=== PATIENT | female | born 1940 | race Caucasian/White ===

== ENCOUNTER 2020-04-14 17:06 | Inpatient (IN) | payer OTHER ==
[~2020-04-14] VITALS: Ht 149.9 cm; Wt 95.6 kg
[2020-04-14 17:08] VITALS: BP 97/42
[2020-04-14] MEDS ORDERED: FLONASE 0.05%50 MCG NARES ×2 (17:35→17:52)
[2020-04-14] MEDS ORDERED: ELIQUIS5 MG PO ×2 (17:35→17:53)
[2020-04-14] MEDS ORDERED: ARMOUR THYROID60 M1 PO ×2 (17:36→17:54)
[2020-04-14] MEDS ORDERED: PROTONIX40 M2 PO ×2 (17:36→17:53)
[2020-04-14 17:37] LABS: HEMATOCRIT 22.2 % (37.0-47.0); MCHC 30.6 g/dL (28.0-37.0); MCV 107.8 fL (80.0-100.0); MPV 8.2 fl. (7.2-11.1); NUCLEATED RBCS 1 /100WBC; PLATELET COUNT* 66 thou/uL (150-400); RBC 2.06 mil/uL (4.20-5.00); RDW-CV 21.1 % (10.5-14.5)
[2020-04-14] MEDS ORDERED: TYLENOL325 M1 PO (17:37)
[2020-04-14] MEDS ORDERED: ALPRAZOLAM XR3 MG PO ×2 (17:37→17:54)
[2020-04-14 17:41] LABS: HEMOGLOBIN 6.8 gm/dL (12.0-15.0)
[2020-04-14 17:42] LABS: WBC 0.9 thou/uL (4.0-11.0)
[2020-04-14 17:47] LABS: CALCIUM 8.5 mg/dL (8.5-10.1); CREATININE 1.7 mg/dL (0.6-1.3); POTASSIUM 5.4 mmol/L (3.5-5.1)
[2020-04-14 17:49] LABS: INR 1.1; PROTIME 11.4 Seconds (9.20-11.50)
[2020-04-14] MEDS ORDERED: IRON325 M1 PO (17:55)
[2020-04-14] MEDS ORDERED: MAGNESIUM250 M1 PO (17:55)
[2020-04-14] MEDS ORDERED: TYLENOL EXTRA500 MG PO (17:55)
[2020-04-14] MEDS ORDERED: VITAMIN D-40010 MCG PO (17:57)
[2020-04-14] MEDS ORDERED: VITAMIN D PO (17:57)
[2020-04-14 17:58] LABS: ALBUMIN 3.8 g/dL (3.4-5.0); TOTAL BILIRUBIN 0.2 mg/dL (<0.1-1.0); TOTAL PROTEIN 6.8 g/dL (6.4-8.2)
[2020-04-14] MEDS ORDERED: KLOR-CON M2020 MEQ PO (17:58)
[2020-04-14] MEDS ORDERED: PROCTOSOL-HC28.35 GM TOP (17:58)
[2020-04-14] MEDS ORDERED: TOPROL XL25 MG PO (17:59)
[2020-04-14] MEDS ORDERED: FUROSEMIDE 40 M40 MG PO (17:59)
[2020-04-14] MEDS ORDERED: DILTIAZEM ER180 M2 PO (17:59)
[2020-04-14] MEDS ORDERED: ALIGN4 MG PO (18:00)
[2020-04-14] MEDS ORDERED: DIFLUCAN10 MG/ML PO (18:01)
[2020-04-14 18:33] LABS: URINE BILIRUBIN NEGATIVE (Negative); URINE BLOOD NEGATIVE (Negative); URINE CLARITY CLEAR; URINE COLOR YELLOW; URINE GLUCOSE-RANDOM NEGATIVE (Negative); URINE KETONES TRACE (Negative); URINE LEUKOCYTES-REFLEX NEGATIVE (Negative); URINE PROTEIN TRACE (Negative); URINE UROBILINOGEN 0.2 E.U./dl (0.2-1.0)
[2020-04-14 18:34] LABS: URINE NITRITE-REFLEX POSITIVE (Negative)
[2020-04-14 18:38] LABS: ABSOLUTE LYMPHOCYTES 0.3 thou/uL (0.8-5.3); ABSOLUTE MONOCYTES 0.2 thou/uL (0.0-1.2); ABSOLUTE NEUTROPHILS 0.3 thou/uL (1.6-8.1); PLATELET ESTIMATE DECREASED
[2020-04-14 18:39] LABS: ANISOCYTOSIS 2+; MACROCYTES 1+
[2020-04-14 18:44] LABS: BACTERIA-REFLEX >30 Many /HPF (None Seen); CRYSTALS None Seen /LPF (None Seen); HYALINE CASTS 0-3 Few /LPF (None Seen); MUCUS None Seen strn/LPF (None Seen); SQUAMOUS 4-10 Moderate /LPF (0-3); URINE RBC 0-2 Rare /HPF (0-2); URINE WBC-REFLEX 0-5 Rare /HPF (0-5)
[2020-04-14 20:11] VITALS: BP 127/40
[2020-04-15] VITALS (7 sets, daily range): BP systolic 102–134; BP diastolic 36–50
[2020-04-15 00:37] LABS: HEMATOCRIT 22.1 % (37.0-47.0); MCH 32.8 pg (26.0-34.0); MCHC 31.6 g/dL (28.0-37.0); MCV 103.8 fL (80.0-100.0); MPV 8.3 fl. (7.2-11.1); RBC 2.13 mil/uL (4.20-5.00)
[2020-04-15 00:39] LABS: WBC 0.9 thou/uL (4.0-11.0)
[2020-04-15 00:47] LABS: CALCIUM 8.3 mg/dL (8.5-10.1); CREATININE 1.6 mg/dL (0.6-1.3); POTASSIUM 5.6 mmol/L (3.5-5.1)
[2020-04-15 05:49] LABS: HEMATOCRIT 21.7 % (37.0-47.0); MCH 32.2 pg (26.0-34.0); MPV 8.5 fl. (7.2-11.1); RBC 2.08 mil/uL (4.20-5.00); RDW-CV 21.6 % (10.5-14.5)
[2020-04-15 05:53] LABS: CALCIUM 8.4 mg/dL (8.5-10.1); CREATININE 1.8 mg/dL (0.6-1.3); POTASSIUM 5.4 mmol/L (3.5-5.1)
[2020-04-15 06:12] LABS: HEMOGLOBIN 6.7 gm/dL (12.0-15.0); WBC 1.2 thou/uL (4.0-11.0)
[2020-04-15 16:57] LABS: ABSOLUTE EOSINOPHILS 0.1 thou/uL (0.0-0.7); ABSOLUTE LYMPHOCYTES 0.5 thou/uL (0.8-5.3); ABSOLUTE MONOCYTES 0.5 thou/uL (0.0-1.2); ABSOLUTE NEUTROPHILS 0.3 thou/uL (1.6-8.1); BASOPHILS 2.1 %; EOSINOPHILS 5.3 %; HEMOGLOBIN 7.9 gm/dL (12.0-15.0); LYMPHOCYTES 36.6 %; MCH 32.7 pg (26.0-34.0); MCHC 31.7 g/dL (28.0-37.0); MCV 103.2 fL (80.0-100.0); NUCLEATED RBCS 1 /100WBC; PLATELET COUNT* 62 thou/uL (150-400); RBC 2.43 mil/uL (4.20-5.00); RDW-CV 20.5 % (10.5-14.5)
[2020-04-15 17:00] LABS: WBC 1.4 thou/uL (4.0-11.0)
[2020-04-16] VITALS: BP 102/38
[2020-04-16 04:00] VITALS: BP 104/38
[2020-04-16 04:23] LABS: ABSOLUTE EOSINOPHILS 0.1 thou/uL (0.0-0.7); ABSOLUTE LYMPHOCYTES 0.7 thou/uL (0.8-5.3); ABSOLUTE MONOCYTES 0.5 thou/uL (0.0-1.2); ABSOLUTE NEUTROPHILS 0.2 thou/uL (1.6-8.1); BASOPHILS 0.9 %; EOSINOPHILS 6.4 %; HEMATOCRIT 23.6 % (37.0-47.0); HEMOGLOBIN 7.6 gm/dL (12.0-15.0); LYMPHOCYTES 44.2 %; MCH 32.8 pg (26.0-34.0); MCV 102.4 fL (80.0-100.0); MONOCYTES 32.6 %; MPV 8.3 fl. (7.2-11.1); NUCLEATED RBCS 0 /100WBC; PLATELET COUNT* 66 thou/uL (150-400); POLYS 15.9 %; RBC 2.31 mil/uL (4.20-5.00); RDW-CV 20.3 % (10.5-14.5)
[2020-04-16 04:31] LABS: ALBUMIN 3.2 g/dL (3.4-5.0); CALCIUM 8.2 mg/dL (8.5-10.1); CREATININE 1.8 mg/dL (0.6-1.3); POTASSIUM 4.7 mmol/L (3.5-5.1); TOTAL BILIRUBIN 0.2 mg/dL (<0.1-1.0); TOTAL PROTEIN 5.9 g/dL (6.4-8.2); WBC 1.5 thou/uL (4.0-11.0)
[2020-04-16 08:00] VITALS: BP 111/36
[2020-04-16 11:45] VITALS: BP 119/34
--- NOTE | 2020-04-16 13:45 | EKG ---
[place] [address] ELECTROCARDIOGRAM REPORT Name: RYAN ALVARADO Room: [address] ADM IN .R.#: [id number] Admission: 04/14/20 Attend Phys: Bee Silva MD Discharge: Date of : 42 Date of Service: 04/14/20 1716 Report #: [id number] THIS REPORT FOR: //name// [facility] ED Test Date: 2020-04-14 Test Time: 17:16:12 Pat Name: RYAN ALVARADO Department: Room: [facility] Gender: F Customer Success Manager: MANGO : 1940 Requested By: Ishaan Urbano Order Number: [id number] MD: Wero Rubio Measurements Intervals [place] Rate: 75 P: 0 WI: 157 QRS: 29 QRSD: 123 T: -74 QT: 407 QTc: 455 Interpretive Statements Sinus rhythm Nonspecific intraventricular conduction delay Repol abnrm suggests ischemia, anterolateral No previous ECG available for comparison Electronically Signed On 04-16-2020 13:45:37 [employer] FINISH[employer] by Wero Rubio [email or web address] <ELECTRONICALLY SIGNED> By: Wero Rubio MD, FAC 04/16/20 1345 1716 1716 Wero Rubio MD, [facility] /EPI
[2020-04-16 15:30] VITALS: BP 104/41
[2020-04-16 20:34] VITALS: BP 128/35
[2020-04-17] VITALS (7 sets, daily range): BP systolic 118–151; BP diastolic 36–55
[2020-04-17 04:56] LABS: HEMATOCRIT 23.4 % (37.0-47.0); HEMOGLOBIN 7.5 gm/dL (12.0-15.0); MCH 32.5 pg (26.0-34.0); MCHC 32.2 g/dL (28.0-37.0); MCV 100.9 fL (80.0-100.0); NUCLEATED RBCS 0 /100WBC; PLATELET COUNT* 63 thou/uL (150-400); RBC 2.32 mil/uL (4.20-5.00); RDW-CV 20.3 % (10.5-14.5)
[2020-04-17 05:09] LABS: ALBUMIN 3.3 g/dL (3.4-5.0); CALCIUM 8.3 mg/dL (8.5-10.1); CREATININE 1.6 mg/dL (0.6-1.3); POTASSIUM 4.8 mmol/L (3.5-5.1); TOTAL BILIRUBIN 0.3 mg/dL (<0.1-1.0)
[2020-04-17 05:23] LABS: WBC 1.5 thou/uL (4.0-11.0)
[2020-04-17 06:19] LABS: ABSOLUTE EOSINOPHILS 0.1 thou/uL (0.0-0.7); ABSOLUTE LYMPHOCYTES 0.6 thou/uL (0.8-5.3); ABSOLUTE MONOCYTES 0.3 thou/uL (0.0-1.2); ABSOLUTE NEUTROPHILS 0.4 thou/uL (1.6-8.1); ANISOCYTOSIS 1+; MACROCYTES 1+; PLATELET ESTIMATE DECREASED; POIKILOCYTOSIS 1+; POLYCHROMASIA Occasional
[2020-04-17 12:55] LABS: CALCIUM 8.3 mg/dL (8.5-10.1); CREATININE 1.6 mg/dL (0.6-1.3); POTASSIUM 4.8 mmol/L (3.5-5.1)
[2020-04-18 04:13] VITALS: BP 125/40
[2020-04-18 04:58] LABS: HEMATOCRIT 22.5 % (37.0-47.0); HEMOGLOBIN 7.3 gm/dL (12.0-15.0); MCH 32.5 pg (26.0-34.0); MCHC 32.3 g/dL (28.0-37.0); MCV 100.6 fL (80.0-100.0); RBC 2.24 mil/uL (4.20-5.00); RDW-CV 19.9 % (10.5-14.5)
[2020-04-18 05:12] LABS: WBC 0.9 thou/uL (4.0-11.0)
[2020-04-18 05:22] LABS: ALBUMIN 2.9 g/dL (3.4-5.0); CALCIUM 8.2 mg/dL (8.5-10.1); CREATININE 1.5 mg/dL (0.6-1.3); MAGNESIUM 1.8 mg/dL (1.8-2.4); POTASSIUM 4.6 mmol/L (3.5-5.1); TOTAL BILIRUBIN 0.3 mg/dL (<0.1-1.0); TOTAL PROTEIN 5.6 g/dL (6.4-8.2)
[2020-04-18 08:00] VITALS: BP 120/37
[2020-04-18 11:57] VITALS: BP 123/36
--- NOTE | 2020-04-18 12:48 | 2DMMODE ---
[place] [address] 2 D/M-MODE ECHOCARDIOGRAM Name: SHERRYJAMMIERYAN J Room: [address] IN .R.#: [id number] Admission: 04/14/20 Attend Phys: Bee Silva MD Discharge: Date of : 42 Date of Service: 04/16/20 1521 Report #: [id number] THIS REPORT FOR: cc: FAM - No family physician/PCP FAM - No family physician/PCP Wero Rubio MD [facility] ~ APPROVED REPORT Study performed: 04/16/2020 10:09:25 EXAM: Comprehensive 2D, Doppler, and color-flow Echocardiogram Patient Location: In-Patient Room #: 204 Status: routine BSA: 1.92 HR: 66 bpm BP: 104/38 mmHg Rhythm: NSR Other Information Study Quality: Good Indications Congestive Heart Failure Dyspnea 2D Dimensions IVSd: 9.08 (7-11mm) LVOT Diam: 18.59 (18-24mm) LVDd: 49.42 mm PWd: 8.28 (7-11mm) Ascending Ao: 30.16 (22-36mm) LVDs: 30.92 (25-40mm) Aortic Root: 29.03 mm Volumes Left Atrial Volume (Systole) LA ESV Index: 66.20 mL/m2 Aortic Valve AoV Peak Gilbert.: 1.85 m/s AO Peak Gr.: 13.62 mmHg LVOT Max P.89 mmHg AO Mean Gr.: 6.13 mmHg LVOT Mean P.41 mmHg LVOT Max V: 1.21 m/s AO V2 VTI: 40.01 cm LVOT Mean V: 0.69 m/s ADY (VTI): 2.20 cm2 LVOT V1 VTI: 32.43 [place] [address] 2 D/M-MODE ECHOCARDIOGRAM Name: RYAN ALVARADO Room: [address] IN .R.#: [id number] Admission: 04/14/20 Attend Phys: Bee Silva MD Discharge: Date of : 42 Date of Service: 04/16/20 1521 Report #: [id number] Mitral Valve E/A Ratio: 1.32 MV Decel. Time: 151.25 ms MV E Max Gilbert.: 1.34 m/s MV PHT: 43.86 ms MVA (PHT): 5.02 cm2 TDI E/Lateral E': 12.18 E/Medial E': 12.18 Medial E' Gilbert.: 0.11 m/s Lateral E' Gilbert.: 0.11 m/s Pulmonary Valve PV Peak Gilbert.: 1.29 m/s PV Peak Gr.: 6.62 mmHg Tricuspid Valve RAP Estimate: 5.00 mmHg TR Peak Gr.: 41.02 mmHg RVSP: 46.00 mmHg PA Pressure: 46.00 mmHg Left Ventricle The left ventricle is normal size. There is normal LV segmental wall motion. There is normal left ventricular wall thickness. Left ventricular systolic function is normal. The left ventricular ejection fraction is within the normal range. LVEF is 55-60%. The left ventricular diastolic function is normal. Right Ventricle Right ventricle is borderline dilated. The right ventricular systolic function is normal. Pacemaker lead is present in the right ventricle. Atria Left atrium is moderately dilated. Right atrium is moderately dilated. Aortic Valve Mild aortic valve sclerosis. No aortic regurgitation is present. No hemodynamically significant valvular aortic stenosis. Mitral Valve The mitral valve is normal in structure. Mild mitral regurgitation. No evidence of mitral valve stenosis. Tricuspid Valve The tricuspid valve is normal in structure[place] [address] 2 D/M-MODE ECHOCARDIOGRAM Name: RYAN ALVARADO Room: [address] IN [facility]#: [id number] Admission: 04/14/20 Attend Phys: Bee Silva MD Discharge: Date of : 42 Date of Service: 04/16/20 1521 Report #: [id number] tricuspid regurgitation. Moderate pulmonary hypertension. Pulmonic Valve The pulmonary valve is normal in structure. There is no pulmonic valvular regurgitation. Great Vessels The aortic root is normal in size. IVC is normal in size and collapses >50% with inspiration. Pericardium There is no pericardial effusion. <Conclusion> The left ventricle is normal size. There is normal left ventricular wall thickness. Left ventricular systolic function is normal. The left ventricular ejection fraction is within the normal range. LVEF is 55-60%. The left ventricular diastolic function is normal. Right ventricle is borderline dilated. Left atrium is moderately dilated. Right atrium is moderately dilated. Mild aortic valve sclerosis. No aortic regurgitation is present. No hemodynamically significant valvular aortic stenosis. The mitral valve is normal in structure. Mild mitral regurgitation. The tricuspid valve is normal in structure. Mild to moderate tricuspid regurgitation. Moderate pulmonary hypertension. IVC is normal in size and collapses >50% with inspiration. There is no pericardial effusion. There is normal LV segmental wall motion. Pacemaker lead is present in the right ventricle. <ELECTRONICALLY SIGNED> By: Wero Rubio MD, FACC 04/16/20 1521 152 152 Wero Rubio MD, FACC /INF
--- NOTE | 2020-04-18 12:50 | CON ---
[address] [address] CONSULTATION Name: SHERRYJAMMIERYAN Room: [address] IN M.R.#: [id number] Admission: 04/14/20 Attend Phys: Bee Silva MD Discharge: Date of : 42 Report #: [id number] THIS REPORT FOR: cc: FAM - No family physician/PCP FAM - No family physician/PCP ~ João Anaya DPM DATE OF SERVICE: 04/16/2020 ADMISSION DIAGNOSES: Malaise, weakness, fatigue. HISTORY OF PRESENT ILLNESS: The patient is a 80-year-old female admitted on 04/14/2020 with weakness, fatigue and left lower extremity edema with cellulitis. She has a grade 0 pressure ulceration to the left inferior heel. She was started on ceftriaxone for possible UTI. She is also on p.o. clindamycin. Her recently passed and she was unable to attend the due to increased stability. She was ambulatory with a walker prior to hospital admission. She has a substantial medical history. She denies fevers, chills, nausea, malaise, diaphoresis or chest pain. LABORATORY DATA: WBC 1.5, RBC 2.31, hemoglobin 7.6, hematocrit 23.6, platelets 66. BUN 36, creatinine 1.8, glucose 82, albumin 3.2. PHYSICAL EXAMINATION: Temperature 97.5, pulse 68, respiration 17, blood pressure 119/34. There is a grade 0 ulceration to the left inferior heel with no open skin wound. The area was mildly inflamed and painful to the touch. There is some shadowing of the underlying subcutaneous tissue, no fluctuance or crepitation. She has a faintly palpable dorsalis pedis and posterior tibial pulses bilaterally. She has advanced edema to both lower extremities. IMPRESSION: Grade 0 ulceration to left inferior heel with low-grade cellulitis. PLAN: I ordered a PRAFO boot for improved offloading. May continue to cover the area with a bordered foam. No further imaging studies are completed. <ELECTRONICALLY SIGNED> By: João Anaya DPM 04/18/20 1250 1247 1301Dlj Anaya DPM /nt
[2020-04-18 16:37] VITALS: BP 114/41
[2020-04-18 20:00] VITALS: BP 126/41
[2020-04-19 00:35] VITALS: BP 113/48
[2020-04-19 04:19] VITALS: BP 104/46
[2020-04-19 04:39] LABS: HEMATOCRIT 22.2 % (37.0-47.0); HEMOGLOBIN 7.2 gm/dL (12.0-15.0); MCH 32.7 pg (26.0-34.0); MCHC 32.2 g/dL (28.0-37.0); MCV 101.5 fL (80.0-100.0); MPV 7.7 fl. (7.2-11.1); RBC 2.19 mil/uL (4.20-5.00); RDW-CV 20.2 % (10.5-14.5)
[2020-04-19 05:10] LABS: ALBUMIN 2.7 g/dL (3.4-5.0); CALCIUM 7.9 mg/dL (8.5-10.1); CREATININE 1.4 mg/dL (0.6-1.3); MAGNESIUM 1.9 mg/dL (1.8-2.4); POTASSIUM 4.6 mmol/L (3.5-5.1); TOTAL BILIRUBIN 0.3 mg/dL (<0.1-1.0); TOTAL PROTEIN 5.3 g/dL (6.4-8.2)
[2020-04-19 05:45] LABS: WBC 1.8 thou/uL (4.0-11.0)
[2020-04-19 08:15] VITALS: BP 114/50
--- NOTE | 2020-04-19 08:59 | CON ---
[address] [address] CONSULTATION Name: RYAN ALVARADO Remy Room: [address] IN ..#: [id number] Admission: 04/14/20 Attend Phys: Bee Silva MD Discharge: Date of : 42 Report #: [id number] THIS REPORT FOR: cc: STEVE - No family physician/PCP FAM - No family physician/PCP ~ Noreen Hoang MD DATE OF SERVICE: 04/16/2020 REQUESTING PHYSICIAN: Bee Silva MD REASON FOR CONSULTATION: Pancytopenia. HISTORY OF PRESENT ILLNESS: The patient is a 80-year-old female with history of coronary artery disease, congestive heart failure, hypothyroidism and anxiety, who was brought to the Emergency Room by EMS complaining of increasing weakness and generalized fatigue. She was the sole caregiver of her , who recently last week. She was not able to go to because of weakness. She was found to have pancytopenia. Hematology consult is requested. The patient is on diuretics. She is doing okay. She does not have complaints of fever or chills. Denies nausea, vomiting or diarrhea. She states that she has noticed abdominal bloating and increasing abdominal girth. Denies melena or hematochezia. PAST MEDICAL HISTORY: Significant for coronary artery disease, congestive heart failure, hypothyroidism, major depressive disorder, GERD. SOCIAL HISTORY: She is recently. Lives with her granddaughter now. She does not smoke. FAMILY HISTORY: Noncontributory. PHYSICAL EXAMINATION: GENERAL: Reveals an elderly female, not in acute distress. VITAL SIGNS: Blood pressure 104/38, heart rate 82, respirations 18, temperature 97.7. HEENT: Reveals decreased hearing. NECK: Supple. LUNGS: Clear. ABDOMEN: Obese. LOWER EXTREMITIES: +2 edema with mild erythema in feet and distal lower extremities. MENTAL STATUS: Alert, oriented. LABORATORY DATA: White count on admission 1.5, hemoglobin 7.6, MCV 102.4, [place] [address] CONSULTATION Name: RYAN ALVARADO Room: [address] IN [facility]#: [id number] Admission: 04/14/20 Attend Phys: Bee Silva MD Discharge: Date of : 42 Report #: [id number] platelets 66 and 15% segs, 44% lymphocytes, monocytes 32%, eosinophils 6%. Today, white count 0.9, hemoglobin 7.0, MCV 103, platelets 62. TSH 6.7, T4 0.72. Folate 49.4. B12 of 5775. ASSESSMENT AND PLAN: 1. Anemia, macrocytic. Folate and B12 normal. The patient has poorly controlled hypothyroidism, dose has been adjusted recently. Plan: To order ferritin to complete workup for anemia. 2. Leukopenia and thrombocytopenia. Plan: To order abdominal ultrasound to evaluate spleen size. If pancytopenia does not resolve, especially neutropenia does not resolve during this admission, the patient will require bone marrow biopsy as an outpatient. Thank you very much for allowing me to participate in care of this patient. We will follow the patient with you. <ELECTRONICALLY SIGNED> By: Noreen Hoang MD 04/19/20 0859 2343 [id number] Hoang MD /nt
[2020-04-19 12:00] VITALS: BP 119/43
[2020-04-19 20:00] VITALS: BP 131/40
[2020-04-20 00:59] VITALS: BP 116/36
[2020-04-20 04:29] LABS: HEMATOCRIT 22.6 % (37.0-47.0); HEMOGLOBIN 7.3 gm/dL (12.0-15.0); MCH 32.8 pg (26.0-34.0); MCHC 32.5 g/dL (28.0-37.0); MPV 7.9 fl. (7.2-11.1); RBC 2.24 mil/uL (4.20-5.00); RDW-CV 19.6 % (10.5-14.5)
[2020-04-20 04:42] VITALS: BP 107/37
[2020-04-20 04:49] LABS: ALBUMIN 2.6 g/dL (3.4-5.0); CREATININE 1.3 mg/dL (0.6-1.3); MAGNESIUM 1.9 mg/dL (1.8-2.4); POTASSIUM 4.6 mmol/L (3.5-5.1); TOTAL BILIRUBIN 0.3 mg/dL (<0.1-1.0); TOTAL PROTEIN 5.4 g/dL (6.4-8.2)
[2020-04-20 05:11] LABS: WBC 1.9 thou/uL (4.0-11.0)
[2020-04-20 12:00] VITALS: BP 124/43
--- NOTE | 2020-04-20 13:58 | IN ---
[address] [address] INTERIM NOTE Name: RYAN ALVARADO Room: [address] IN ..#: [id number] Admission: 04/14/20 Attend Phys: Bee Silva MD Discharge: Date of : 42 Report #: [id number] THIS REPORT FOR: cc: FAM - No family physician/PCP FAM - No family physician/PCP ~ Noreen Hoang MD DATE OF SERVICE: 04/19/2020 SUBJECTIVE: The patient is feeling a little better. Denies fever or chills. OBJECTIVE: VITAL SIGNS: Blood pressure 104/46, heart rate 62, temperature 98.7. NECK: Supple. ABDOMEN: Soft. LABORATORY DATA: White count 1.8, hemoglobin 7.2, platelets 56. Abdominal ultrasound does not show splenomegaly. ASSESSMENT AND PLAN: Pancytopenia. Continue to monitor CBC closely. The patient needs to have bone marrow biopsy if pancytopenia does not resolve with improvement of hypothyroidism. Bone marrow biopsy can be done as an outpatient. The patient is to continue follow up with terminal operator when she is discharged from the hospital. Please schedule the patient with Dr. Wagner for followup and bone marrow biopsy. <ELECTRONICALLY SIGNED> By: Noreen Hoang MD 04/20/20 1358 13 0044Noreen Hoang MD /nt
[2020-04-20 16:00] VITALS: BP 122/41
[2020-04-20 20:00] VITALS: BP 134/39
[2020-04-20 23:19] VITALS: BP 95/52
[2020-04-21 03:40] VITALS: BP 104/42
[2020-04-21 06:30] LABS: HEMATOCRIT 21.5 % (37.0-47.0); MCH 32.6 pg (26.0-34.0); MCHC 32.5 g/dL (28.0-37.0); MCV 100.3 fL (80.0-100.0); MPV 7.9 fl. (7.2-11.1); RBC 2.14 mil/uL (4.20-5.00); RDW-CV 19.3 % (10.5-14.5)
[2020-04-21 06:43] LABS: WBC 1.7 thou/uL (4.0-11.0)
[2020-04-21 06:53] LABS: ALBUMIN 2.6 g/dL (3.4-5.0); CALCIUM 8.1 mg/dL (8.5-10.1); CREATININE 1.3 mg/dL (0.6-1.3); MAGNESIUM 1.9 mg/dL (1.8-2.4); POTASSIUM 4.4 mmol/L (3.5-5.1); TOTAL BILIRUBIN 0.3 mg/dL (<0.1-1.0); TOTAL PROTEIN 5.1 g/dL (6.4-8.2)
[2020-04-21 12:13] VITALS: BP 119/40
[2020-04-21 16:04] VITALS: BP 125/43
[2020-04-21 19:30] VITALS: BP 128/33
[2020-04-22 05:24] LABS: ALBUMIN 2.6 g/dL (3.4-5.0); CALCIUM 8.3 mg/dL (8.5-10.1); CREATININE 1.3 mg/dL (0.6-1.3); POTASSIUM 4.2 mmol/L (3.5-5.1); TOTAL BILIRUBIN 0.3 mg/dL (<0.1-1.0); TOTAL PROTEIN 5.3 g/dL (6.4-8.2)
[2020-04-22 05:29] LABS: HEMATOCRIT 21.4 % (37.0-47.0); MCH 32.8 pg (26.0-34.0); MCHC 32.6 g/dL (28.0-37.0); MCV 100.6 fL (80.0-100.0); MPV 7.9 fl. (7.2-11.1); RBC 2.13 mil/uL (4.20-5.00); RDW-CV 19.3 % (10.5-14.5)
[2020-04-22 05:52] LABS: WBC 1.8 thou/uL (4.0-11.0)
[2020-04-22 08:20] VITALS: BP 118/34
[2020-04-22 16:00] VITALS: BP 122/36
[2020-04-22 20:30] VITALS: BP 116/34
[2020-04-23 04:57] LABS: HEMATOCRIT 20.9 % (37.0-47.0); MCH 32.8 pg (26.0-34.0); MCHC 32.7 g/dL (28.0-37.0); MCV 100.4 fL (80.0-100.0); MPV 7.6 fl. (7.2-11.1); RBC 2.08 mil/uL (4.20-5.00); RDW-CV 19.7 % (10.5-14.5)
[2020-04-23 05:12] LABS: ALBUMIN 2.7 g/dL (3.4-5.0); CALCIUM 7.7 mg/dL (8.5-10.1); CREATININE 1.3 mg/dL (0.6-1.3); MAGNESIUM 1.8 mg/dL (1.8-2.4); POTASSIUM 4.1 mmol/L (3.5-5.1); TOTAL BILIRUBIN 0.3 mg/dL (<0.1-1.0); TOTAL PROTEIN 5.2 g/dL (6.4-8.2)
[2020-04-23 05:20] LABS: HEMOGLOBIN 6.8 gm/dL (12.0-15.0); WBC 1.6 thou/uL (4.0-11.0)
[2020-04-23 07:55] VITALS: BP 105/36
[2020-04-23 11:10] VITALS: BP 105/39; BP 107/44; BP 111/36; BP 115/42; BP 119/41
[2020-04-23 16:11] VITALS: BP 115/42
[2020-04-23 19:50] VITALS: BP 124/46
[2020-04-23 21:23] LABS: HEMATOCRIT 25.1 % (37.0-47.0); HEMOGLOBIN 8.1 gm/dL (12.0-15.0); MCH 32.4 pg (26.0-34.0); MCHC 32.4 g/dL (28.0-37.0); MPV 7.3 fl. (7.2-11.1); RBC 2.51 mil/uL (4.20-5.00); RDW-CV 21.4 % (10.5-14.5)
[2020-04-23 21:44] LABS: WBC 1.9 thou/uL (4.0-11.0)
[2020-04-24 05:48] LABS: HEMATOCRIT 24.7 % (37.0-47.0); HEMOGLOBIN 7.9 gm/dL (12.0-15.0); MCHC 32.1 g/dL (28.0-37.0); MCV 99.6 fL (80.0-100.0); MPV 7.7 fl. (7.2-11.1); RBC 2.48 mil/uL (4.20-5.00); RDW-CV 20.5 % (10.5-14.5)
[2020-04-24 05:57] LABS: WBC 1.9 thou/uL (4.0-11.0)
[2020-04-24 06:25] LABS: CALCIUM 7.6 mg/dL (8.5-10.1); CREATININE 1.2 mg/dL (0.6-1.3); MAGNESIUM 1.8 mg/dL (1.8-2.4); POTASSIUM 4.2 mmol/L (3.5-5.1)
[2020-04-24 08:00] VITALS: BP 111/48
[2020-04-24 15:56] VITALS: BP 122/42
[2020-04-24 21:00] VITALS: BP 124/44
[2020-04-25 02:48] LABS: HEMATOCRIT 25.5 % (37.0-47.0); HEMOGLOBIN 8.2 gm/dL (12.0-15.0); MCH 32.2 pg (26.0-34.0); MCV 100.6 fL (80.0-100.0); MPV 7.2 fl. (7.2-11.1); NUCLEATED RBCS 0 /100WBC; PLATELET COUNT* 82 thou/uL (150-400); RBC 2.53 mil/uL (4.20-5.00); RDW-CV 20.8 % (10.5-14.5)
[2020-04-25 02:52] LABS: WBC 1.9 thou/uL (4.0-11.0)
[2020-04-25 02:53] LABS: CALCIUM 8.1 mg/dL (8.5-10.1); CREATININE 1.2 mg/dL (0.6-1.3); POTASSIUM 4.4 mmol/L (3.5-5.1)
[2020-04-25 02:56] LABS: INR 1.1; PROTIME 11.9 Seconds (9.20-11.50)
[2020-04-25 03:46] LABS: ABSOLUTE BASOPHILS 0.2 thou/uL (0.0-0.2); ABSOLUTE EOSINOPHILS 0.2 thou/uL (0.0-0.7); ABSOLUTE LYMPHOCYTES 0.8 thou/uL (0.8-5.3); ABSOLUTE MONOCYTES 0.3 thou/uL (0.0-1.2); ABSOLUTE NEUTROPHILS 0.4 thou/uL (1.6-8.1); PLATELET ESTIMATE DECREASED
[2020-04-25 08:00] VITALS: BP 116/44
[2020-04-25 08:34] VITALS: BP 124/44
[2020-04-25] MEDS ORDERED: CARAFATE 11 GM/10 M1 PO (08:50)
[2020-04-25] MEDS ORDERED: CARDIZEM60 MG PO (08:50)
[2020-04-25] MEDS ORDERED: TRAMADOL 50 MG50 MG PO (08:50)
[2020-04-25] MEDS ORDERED: XANAX 0.25 MG0.25 MG PO (08:50)
[2020-04-25 12:00] VITALS: BP 66/44
[2020-04-25 15:30] VITALS: BP 119/40
[2020-04-25 21:04] VITALS: BP 118/38
[2020-04-26 05:46] LABS: % SATURATION 90 % (20-39); IRON 121 ug/dL (50-175)
[2020-04-26 08:02] VITALS: BP 110/32
[2020-04-26] MEDS ORDERED: VOLTAREN GEL 1100 G1 TOP (09:52)
[2020-04-26] MEDS ORDERED: SYNTHROID100 MC1 PO (09:52)
[2020-04-26] MEDS ORDERED: PROTONIX40 M2 PO (09:52)
[2020-04-26] MEDS ORDERED: LIDOPATCH1 EACH TOP (09:52)
[2020-04-26 16:00] VITALS: BP 128/44
[2020-04-26 20:00] VITALS: BP 130/52
[2020-04-27 05:25] LABS: HEMATOCRIT 24.4 % (37.0-47.0); HEMOGLOBIN 7.8 gm/dL (12.0-15.0); MCH 32.3 pg (26.0-34.0); MCHC 32.1 g/dL (28.0-37.0); MCV 100.9 fL (80.0-100.0); MPV 8.1 fl. (7.2-11.1); RBC 2.42 mil/uL (4.20-5.00); RDW-CV 20.1 % (10.5-14.5)
[2020-04-27 05:28] LABS: WBC 1.7 thou/uL (4.0-11.0)
[2020-04-27 05:41] LABS: ALBUMIN 2.9 g/dL (3.4-5.0); CALCIUM 7.7 mg/dL (8.5-10.1); CREATININE 1.2 mg/dL (0.6-1.3); MAGNESIUM 1.9 mg/dL (1.8-2.4); POTASSIUM 4.5 mmol/L (3.5-5.1); TOTAL BILIRUBIN 0.3 mg/dL (<0.1-1.0); TOTAL PROTEIN 5.6 g/dL (6.4-8.2)
[2020-04-27 09:00] VITALS: BP 107/35
[2020-04-27 16:00] VITALS: BP 143/54
[2020-04-27 21:15] VITALS: BP 131/40
[2020-04-28 05:34] LABS: HEMATOCRIT 24.3 % (37.0-47.0); HEMOGLOBIN 7.8 gm/dL (12.0-15.0); MCH 32.4 pg (26.0-34.0); MCV 101.4 fL (80.0-100.0); MPV 8.1 fl. (7.2-11.1); RBC 2.4 mil/uL (4.20-5.00); RDW-CV 20.4 % (10.5-14.5)
[2020-04-28 05:43] LABS: WBC 1.8 thou/uL (4.0-11.0)
[2020-04-28 06:09] LABS: CALCIUM 7.8 mg/dL (8.5-10.1); CREATININE 1.2 mg/dL (0.6-1.3); MAGNESIUM 1.9 mg/dL (1.8-2.4); POTASSIUM 4.7 mmol/L (3.5-5.1)
[2020-04-28 08:11] VITALS: BP 138/51
[2020-04-28 15:34] VITALS: BP 123/34
[2020-04-28 20:45] VITALS: BP 132/48
[2020-04-29 04:47] LABS: HEMATOCRIT 24.1 % (37.0-47.0); HEMOGLOBIN 7.8 gm/dL (12.0-15.0); MCH 32.3 pg (26.0-34.0); MCHC 32.2 g/dL (28.0-37.0); MCV 100.2 fL (80.0-100.0); MPV 8.2 fl. (7.2-11.1); RBC 2.4 mil/uL (4.20-5.00)
[2020-04-29 04:54] LABS: CALCIUM 8.2 mg/dL (8.5-10.1); CREATININE 1.2 mg/dL (0.6-1.3); POTASSIUM 4.9 mmol/L (3.5-5.1)
[2020-04-29 05:20] LABS: WBC 1.9 thou/uL (4.0-11.0)
[2020-04-29 07:53] VITALS: BP 141/46
[2020-04-29 21:00] VITALS: BP 141/45
[2020-04-30 10:59] VITALS: BP 138/44
--- NOTE | 2020-05-01 02:06 | PATH ---
[address] [address] PATHOLOGY RPT PROCEDURE Name: BELINDA ALVARADO Room: [address] IN .R.#: [id number] Admission: 04/14/20 Date of : 42 Discharge: 04/30/20 Report #: [id number] Path Case #: [id number] L[facility] Accession Number: [id number] . 01 Material submitted: . PART A: bone - BONE MARROW BIOPSY PART B: bone - BONE MARROW CLOT PART C: bone - BONE MARROW ASPIRATE SLIDES PART D: bone - PERIPHEAL SMEARS PART E: bone - BONE MARROW FLOW . 01 Clinical history: . PT REQUIRING 3RD TRANSFUSION SINCE ADMIT PANCYTOPENIA DESPITE RESOLVING INFECTION . A 80-YEAR-OLD WOMAN WITH PANCYTOPENIA . 02 Diagnosis: Bone marrow aspirate, biopsy, cell clot and peripheral blood: - Peripheral blood with pancytopenia including leukopenia/neutropenia, severe macrocytic anemia and moderate thrombocytopenia. - Hypercellular bone marrow with trilineage hematopoiesis, erythroid hyperplasia, mild dyspoiesis and no morphologic evidence of lymphoma or acute leukemia. (See comment) . (CLW:johan; 04/30/2020) . . . . . Special studies report received from [facility], [address] [place] [address], [address], [place], [address], on case [id number], labeled with their number [id number], dated 04/30/2020. . Flow Cytometry: Hematologic Neoplasia Assessment . Clinical History Anemia . Indication for Study Evaluation for anemia . Specimen Bone Marrow . Viability 89% (7AAD exclusion) [place] [address] PATHOLOGY RPT PROCEDURE Name: BELINDA ALVARADO Room: [address] IN [facility].#: [id number] Admission: 04/14/20 Date of : 42 Discharge: 04/30/20 Report #: [id number] Path Case #: [id number] Interpretation Bone Marrow: - No evidence for an increased blast population. - Phenotypic changes suggestive of myeloid dysmaturation. See comments. - Analysis reveals a myeloid left shift. - No evidence for a B-cell or T-cell lymphoproliferative disorder. . Comments Myeloproliferative and myelodysplastic disorders cannot be categorically confirmed or excluded by flow cytometric analysis. We note that CD56 expression by subset of myeloid and monocytic cells may be associated with (1) myeloid neoplasms including myeloproliferative neoplasms or myelodysplastic syndrome, (2) chronic inflammatory conditions, (3) after chemotherapy, or (4) may be of unknown clinical significance. Correlation with available clinical, laboratory, and morphologic data is recommended. . Populations Analyzed Myeloid Blasts: 1.2% No significant immunophenotypic abnormalities Lymphocytes: 20% B-cells: 4.1%, polytypic/polyclonal sIg light chain pattern T-cells: no significant abnormalities of the markers tested CD4+ T-cells: 9.4% (including 0.2% CD57+ cells) CD8+ T-cells: 2.8% (including 0.8% CD57+ cells) CD4:CD8: 3.4 NK cells: 5.0% Neutrophilic Cells: 59% Analysis reveals a myeloid left shift, as shown by downregulation of CD10, CD11c, and CD16. Monocytic Cells: 5% Subset of monocytic cells (20%) expresses aberrant CD56. Eosinophils: 7% No relative increase Basophils: 1.5% No relative increase Plasma Cells: 0.2% Few detected; no overt abnormalities of the surface markers tested (plasma cells are typically underrepresented by flow cytometry; cytoplasmic light chains were not assessed) Hematogones: 0.1% Normal B-cell precursors CD45 Negative 6% No significant reactivity with the markers Events/Debris: tested (may represent unlysed red blood cells, erythroid precursors, platelets, debris, etc.) (erythroid precursors may be underrepresented due to sample lysis/processing) . Morphologic Evaluation A slide was reviewed for lead quality technician purposes only. . Specimen Description Cell Yield: 4.56 X 10 and 6 [place] [address] PATHOLOGY RPT PROCEDURE Name: BELINDA ALVARADO Room: [address] IN [facility].#: [id number] Admission: 04/14/20 Date of : 42 Discharge: 04/30/20 Report #: [id number] Path Case #: [id number] Reagent(s) Used CD2, CD3, CD4, CD5, CD7, CD8, CD10, CD11b, CD13, CD14, CD16, CD19, CD20, CD33, CD34, CD38, CD45, CD56, CD57, CD64, CD117, HLA-DR, kappa, lambda . at [facility] [employer] [facility]. Jaspal Christopher MD Hematopathologist . . Intended Use Flow cytometry is optimally used to immunophenotypically characterize abnormal populations when they are detected. Negative flow cytometry results do not exclude lymphoma or neoplasia. Possible false negative flow cytometry results may occur in, but are not limited to, the following: neoplastic cells in Hodgkin lymphoma are not typically adequately represented by routine clinical flow cytometry; neoplastic cells may be lost or inadequately represented due to degeneration, sample processing, sampling artifact, or patchy involvement; plasma cells are typically underrepresented by flow cytometry; immature cells/blasts may be underrepresented due to hemodilution; myeloproliferative disorders and low grade myelodysplasia may not have immunophenotypic abnormalities or increased blasts. Correlation with all available clinical, laboratory, and morphologic data is always necessary to assess for the possibility of false negative flow cytometry results and to establish a diagnosis. Each marker in this analysis was used to assess for potential antigenic abnormalities or to evaluate detected abnormalities. . Any image or images that accompany this report are food service representative images only and should not be used to render a diagnosis. . Disclaimer(s) This test was developed and its performance characteristics determined by [facility]. It has not been cleared or approved by the Food and Drug Administration. . Performing [facility] is a business unit of [facility]., a wholly-owned subsidiary of [employer]. . This test was performed at [facility]. at [address], [place], [address] - Informatics Specialist: Faisal Ontiveros MD. . For inquiries, the physician may contact Lab: [phone] . A complete copy of the report is on file. . [address] [address] PATHOLOGY RPT PROCEDURE Name: BELINDA ALVARADO Room: [address] IN ..#: [id number] Admission: 04/14/20 Date of : 42 Discharge: 04/30/20 Report #: [id number] Path Case #: [id number] Professional services performed by [facility]. at [address], [place] [address]. Technical services performed by [facility] [employer] [facility]. at [address], [place] [address]. . (CLW:don 04/30/2020) [facility] 05/01/2020 0010 Local . 02 Comment: Overall, the bone marrow is hypercellular for the patient's age with trilineage hematopoiesis, erythroid hyperplasia, mild dyspoiesis and no morphologic evidence of lymphoma or acute leukemia. An eosinophilia is noted. The findings may represent a low grade myelodysplastic syndrome; however, that diagnosis requires correlation with clinical history, additional laboratory data and cytogenetics. Please correlate clinically. The case was discussed preliminarily with Dr. Oakley and Dr. Silva on 04/25/20 at approximately 1:45 PM. . (CLW:mml; 04/30/2020) . 02 Electronically signed: . Светлана Palumbo MD, Pathologist NPI- [id number] . 01 Gross description: . A. The specimen is received in formalin, labeled "Belinda Alvarado, core" and consists of a bone core measuring 1.7 cm in length and 0.2 cm in diameter which is entirely submitted in A1 following decalcification. . B. The specimen is received in formalin, labeled "Belinda Alvarado, clot" and consists of a cylindrical blood clot measuring 5.0 x 1.4 x 1.4 cm which is entirely submitted in B1-B4. (SDY; 04/25/2020) SYU/SYU 04/25/2020 1606 Local . 02 Microscopic: . CBC Data (04/25/20): WBC 1900/uL, RBC 2.53, hemoglobin 8.2 g/dL, hematocrit 25.5%, MCV 100.6 fL, MCH 32.2 pg, MCHC 32.0 g/dL, RDW 20.8%, and platelet count 82,000/uL. White blood cell differential: segs 8%, bands 13%, lymphs 43%, monos 17%, eos 10%, and basos 9%. . Peripheral Blood Smear: Cytomorphological examination of the De Oliveira's stained peripheral blood smear confirms the provided data. Red blood cells show severe macrocytic anemia with anisocytosis. No significant poikilocytosis is identified. No schistocytes are seen. White blood cells are decreased in number. They are predominantly lymphocytes that are small, round, and mature appearing with condensed chromatin and scant cytoplasm [place] [address] PATHOLOGY RPT PROCEDURE Name: BELINDA ALVARADO Room: [address] DIS IN M.R.#: [id number] Admission: 04/14/20 Date of : 42 Discharge: 04/30/20 Report #: [id number] Path Case #: [id number] granular lymphocytes and reactive-appearing lymphocytes. Granulocytes are predominantly segmented neutrophils, eosinophils and basophils. No significant left shift is identified. Monocytes are mature. Platelets are moderately decreased in number and mainly normal in morphology with rare larger platelets noted. . Aspirate Smears: Cytomorphological examination of the De Oliveira's stained aspirate smears show spicules present. The overall cellularity is approximately 60%. The myeloid to erythroid ratio is 1:1. Full myeloid maturation is identified and is mildly dyspoietic with small cell size, nuclear and cytoplasmic abnormalities and an eosinophilia. Erythroid maturation is mildly dyserythropoietic with irregular nuclear contours, mitotic figures, and basophilic stippling. In a 500 cell differential, there are 1% blasts (no Fernando rods are seen), 45% more differentiated myeloids, 33% erythroid precursors, 21% lymphocytes and less than 1% plasma cells. Megakaryocytes are proportional to mildly increased in number and both normal and abnormal in morphology with variable sizes and nuclear abnormalities. There is a mild increase in small mature-appearing lymphocytes. No lymphoid aggregates or markedly atypical lymphoid cells are seen. Rare plasma cells are without atypia. Iron stain of the aspirate smear shows 3/4+ iron positivity with spicules present. No ringed sideroblasts are identified. . Core Biopsy and Cell Clot: The decalcified bone marrow core biopsy is adequate. The bone marrow is hypercellular with an overall cellularity of approximately 60%. The myeloid to erythroid ratio is 1-2:1. Myeloid and erythroid maturation are mildly dyspoietic. An eosinophilia is noted. Megakaryocytes are normal in number and both normal and abnormal in morphology. No lymphoid aggregates or markedly atypical lymphoid cells are seen. Bony trabeculae and blood vessels are unremarkable. The cell clot has a rare spicule present that are similar in cellularity and differential morphology as previously described. . Properly-controlled special stains are performed. . Block A1: Iron - 3/4+ iron positivity; Reticulin - No significant reticulin fibrosis. . Block B1: Iron - 2-3/4+ iron positivity with a rare spicule present. . Flow Cytometry: Flow cytometric immunophenotypic analysis was performed at [facility]. The diagnosis is "no evidence for an increased blast population, phenotypic changes suggestive of myeloid dysmaturation, analysis reveals a myeloid left shift, no evidence for a [place] [address] PATHOLOGY RPT PROCEDURE Name: BELINDA ALVARADO Room: [address] IN [facility]#: [id number] Admission: 04/14/20 Date of : 42 Discharge: 04/30/20 Report #: [id number] Path Case #: [id number] T-cell lymphoproliferative disorder." There are 1.2% myeloid blasts. There are 20% lymphocytes. Of the lymphocytes, there are 4.1% polyclonal B-cells. T-cells have a CD4/CD8 ratio of 3.4 and no aberrant T-cell antigen expression. There are 59% neutrophilic cells that reveal a myeloid left shift. There are 5% monocytic cells with a subset (20%) expressing aberrant CD56. Please see separate flow cytometry report from [facility] ([id number]). . Cytogenetics Analysis: Cytogenetic chromosomal analysis is pending at [facility] ([id number]). . (CLW:mmevelin; 04/30/2020) . 02 Pathologist provided ICD-10: D61.818, D53.9, D69.6, D75.89 . 02 CPT . 065656, 652522, 974019, 466030, 055391, 571003, 580662, 986054, 880703 Specimen Comment: Report sent to / Performed at: [address] [facility] [id number] MD Salvatore Hopson MD Phone: [phone] Performed at: 02 [facility] [id number] [place] [id number] MD Sally Cash MD Phone: [phone]
== END 2020-04-30 14:09 | DRG 808 ==
LOC: M.ERS 17:06 → M.TBA-ER 17:56 → M.3W 17:56 → M.2W 17:56 → M.3W 04-21 22:31 → M.ORTHSURG 04-29 16:05
PROVIDERS: Allergy & Immunology; Emergency Medicine Emergency Medical Services; Internal Medicine; Internal Medicine Hematology & Oncology; ADMIT Family Medicine; ATTEND Family Medicine
PROC: 30233N1 Transfusion of Nonautologous Red Blood Cells into Peripheral Vein, Percutaneous Approach (ICD-10-PCS; principal; 2020-04-14)
PROC: 5A0935A Assistance with Respiratory Ventilation, Less than 24 Consecutive Hours, High Flow/Velocity Cannula (ICD-10-PCS; 2020-04-20)
PROC: 079T3ZX Drainage of Bone Marrow, Percutaneous Approach, Diagnostic (ICD-10-PCS; 2020-04-25)
DX: D61.818 Other pancytopenia (principal); I50.33 Acute on chronic diastolic (congestive) heart failure; N17.0 Acute kidney failure with tubular necrosis; J96.01 Acute respiratory failure with hypoxia; N39.0 Urinary tract infection, site not specified; Z16.12 Extended spectrum beta lactamase (ESBL) resistance; E87.0 Hyperosmolality and hypernatremia; E87.2 Acidosis; Z68.41 Body mass index [BMI] 40.0-44.9, adult; L03.116 Cellulitis of left lower limb; D62 Acute posthemorrhagic anemia; B96.20 Unspecified Escherichia coli [E. coli] as the cause of diseases classified elsewhere; E87.8 Other disorders of electrolyte and fluid balance, not elsewhere classified; E03.9 Hypothyroidism, unspecified; I89.0 Lymphedema, not elsewhere classified; E66.01 Morbid (severe) obesity due to excess calories; D72.819 Decreased white blood cell count, unspecified; D69.6 Thrombocytopenia, unspecified; E87.5 Hyperkalemia; K21.9 Gastro-esophageal reflux disease without esophagitis; F32.9 Major depressive disorder, single episode, unspecified; F41.9 Anxiety disorder, unspecified; I25.10 Atherosclerotic heart disease of native coronary artery without angina pectoris; I27.20 Pulmonary hypertension, unspecified; D75.1 Secondary polycythemia; S91.302A Unspecified open wound, left foot, initial encounter; G89.29 Other chronic pain; M54.9 Dorsalgia, unspecified; X58.XXXA Exposure to other specified factors, initial encounter; Z20.822 Contact with and (suspected) exposure to COVID-19; Y92.89 Other specified places as the place of occurrence of the external cause; Y93.89 Activity, other specified; Y99.8 Other external cause status; Z95.0 Presence of cardiac pacemaker; Z79.01 Long term (current) use of anticoagulants; Z79.899 Other long term (current) drug therapy; Z88.5 Allergy status to narcotic agent; Z88.0 Allergy status to penicillin; Z88.2 Allergy status to sulfonamides; Z88.8 Allergy status to other drugs, medicaments and biological substances; Z90.49 Acquired absence of other specified parts of digestive tract; Z98.84 Bariatric surgery status